=== PATIENT | female | born 1960 | race Caucasian/White ===

== ENCOUNTER → 2018-12-24 | Outpatient (REF) ==
--- NOTE | 2018-12-24 12:45 | REP ---
PARTIAL LUMBAR SPINE SERIES: Three views. HISTORY: Degenerative disc disease. FINDINGS: Lumbar vertebral body heights are preserved. There is a mild levoconvex curvature. There are clips in right upper quadrant and right pelvis. There is mild degenerative narrowing of the L4-5 and L5 S1 disc. There is moderate osteoarthritic facet hypertrophy bilaterally L4-5 at L5-S1. Sacrum and SI joints are intact. Psoas margins are symmetric. IMPRESSION: Degenerative disc and facet changes L4-5 and L5-S1. Mild levoconvex curvature. Electronically Signed by Roddy Cho MD 12/24/2018 01:44 P
== END ==
LOC: M SMT 11:17
PROVIDERS: ATTEND Internal Medicine
DX: Z02.71 Encounter for disability determination (principal)

== ENCOUNTER → 2021-08-18 | Outpatient (CLI) | payer MEDICARE | LOC: M RAD 09:49 | PROVIDERS: ATTEND Internal Medicine Gastroenterology | DX: R12 Heartburn (principal); K31.84 Gastroparesis | CPT/HCPCS: 78264; A9541 ==

== ENCOUNTER 2021-09-22 13:12 | Day surgery (SDC) | payer MEDICARE ==
[~2021-09-22] VITALS: Ht 149.9 cm; Wt 56.6 kg
[~2021-09-22 13:12] MED LIST: ANAS1TAB2 PO; ATOR1TAB21 PO; JARD1TAB PO; LIDOCAINE 2% 100MG/5ML SDV (FOR ANES.) As Ordered ONE; LISI5TAB11 PO; LYRI75CA PO; METH-1165 PO; NS 1,000 ML IV ONE; OMEP40CA4 PO; PIOG1TAB55 PO; PROP60TA18 PO; TRUL0.5I SC; VENTAER INH; VITA100093 PO; fentaNYL 100 MCG/2 ML INJECTION As Ordered ONE; propofoL 200 MG/20 ML VIAL As Ordered ONE
[2021-09-22 16:27] VITALS: BP 106/54
== END 2021-09-22 16:29 | disposition home or self-care (01) ==
LOC: M OPP 13:12
PROVIDERS: ATTEND Internal Medicine Gastroenterology
DX: K44.9 Diaphragmatic hernia without obstruction or gangrene (principal); K31.84 Gastroparesis; K21.9 Gastro-esophageal reflux disease without esophagitis; K22.89 Other specified disease of esophagus; E11.9 Type 2 diabetes mellitus without complications; J44.9 Chronic obstructive pulmonary disease, unspecified; Z79.84 Long term (current) use of oral hypoglycemic drugs; Z79.899 Other long term (current) drug therapy; Z88.5 Allergy status to narcotic agent; Z85.3 Personal history of malignant neoplasm of breast; F17.210 Nicotine dependence, cigarettes, uncomplicated
CPT/HCPCS: 43239; 88305; J3010